=== PATIENT | female | born 1955 | race American Indian/Alaskan Native ===

== ENCOUNTER 2017-08-16 19:41 | Emergency (ER) | payer MEDICARE ==
[2017-08-16 20:19] LABS: Basophils % (Auto) 0.7 % (0.0-1.8); Eosinophils % (Auto) 0.4 % (0.0-4.3); Hematocrit 35.2 % (30.3-42.9); Hemoglobin 11.6 gm/dl (10.1-14.3); Mean Corpuscular HGB Conc 33 % (30-34); Mean Corpuscular Hemoglobin 31 pg (28-32); Mean Corpuscular Volume 94 fl (79-97); Platelet Count 175 K/mm3 (140-440); Red Blood Count 3.76 M/mm3 (3.65-5.03); Red Cell Distribution Width 16.3 % (13.2-15.2); White Blood Count 11.6 K/mm3 (4.5-11.0)
[2017-08-16 20:35] LABS: Anion Gap 18 mmol/L; BUN/Creatinine Ratio 15; Blood Urea Nitrogen 9 mg/dL (7-17); Calcium 8.9 mg/dL (8.4-10.2); Carbon Dioxide 26 mmol/L (22-30); Chloride 103.8 mmol/L (98-107); Glucose 102 mg/dL (65-100); Potassium 3.5 mmol/L (3.6-5.0); Sodium 144 mmol/L (137-145)
--- NOTE | 2017-08-17 08:00 | XRay Report ---
Chest 2 views. History: Cough and chest pain. Findings: The heart and pulmonary vessels are normal. The lungs are clear. There is no pleural fluid. A cardiac pacemaker is in satisfactory position. Impression: No acute findings.
[2017-08-17] MEDS ORDERED: CLEOCIN 600 MG/50 mL 600 MG/50 ML BAG IV ONE (09:01)
[2017-08-17] MEDS ORDERED: NACL 0.9% 500 ML 500 ML IV ONE (09:01)
[2017-08-17] MEDS ORDERED: SUBLIMAZE IV ONE ×2 (09:01→11:58)
[2017-08-17] MEDS ORDERED: TYLENOL PO ONE (09:02)
--- NOTE | 2017-08-17 09:02 | Emergency Department Report ---
ED General Adult HPI - General Chief complaint: Chest Pain Stated complaint: CHEST PAIN Time Seen by Provider: 08/17/17 08:51 Source: patient, RN notes reviewed, old records reviewed Mode of arrival: Ambulatory Limitations: No Limitations - History of Present Illness Initial comments: This is a 61-year-old female who was previously unknown to this provider. The patient presents to the ER with a complaint of left lower dental pain. The pain has been present for 1 day. It is sharp. It increases with palpation. It decreases with rest. Does not radiate anywhere. Patient denies severe headache, posterior neck pain, chest pain, shortness of breath, nausea, vomiting. Patient has a left sided cardiac ICD device, reports a negative nuclear stress test earlier on this year with her primary roads superintendent, Dr. Idris Phillips Patient reports no pulmonary embolus or DVT risk factors. Contrary to what is documented in the triage nurse note, patient endorses a "pulling" sensation over her left-sided ICD device. This happened hours ago, and has since resolved. There is no shortness of breath, vomiting or diaphoresis. -: Gradual Location: mouth Radiation: non-radiation Severity scale (0 -10): 10 Quality: aching Consistency: intermittent Improves with: rest Worsens with: eating, movement Associated Symptoms: denies: confusion, chest pain, cough, diaphoresis, fever/ chills, headaches, loss of appetite, malaise, nausea/vomiting, rash, shortness of breath, syncope, weakness - Related Data Home Medications Medication Instructions Recorded Confirmed Last Taken ALBUTEROL Inhaler [Proair] 2 puff IH QID PRN 08/17/17 08/17/17 Unknown Aspirin 81 mg PO QDAY 08/17/17 08/17/17 Unknown Carvedilol 12.5 mg PO BID 08/17/17 08/17/17 Unknown Citalopram [celeXA] 20 mg PO QDAY 08/17/17 08/17/17 Unknown Furosemide [Lasix] 20 mg PO QDAY 08/17/17 08/17/17 Unknown Gabapentin [Neurontin] 300 mg PO BID 08/17/17 08/17/17 Unknown Ipratropium [Atrovent] 0.5 mg IH Q4HR 08/17/17 08/17/17 Unknown Lisinopril [Zestril] 20 mg PO QDAY 08/17/17 08/17/17 Unknown Omeprazole 20 mg PO BID 08/17/17 08/17/17 Unknown SUMAtriptan SUCCINATE [SUMAtriptan 50 mg PO QDAY 08/17/17 08/17/17 Unknown Succinate] Simvastatin 20 mg PO QDAY 08/17/17 08/17/17 Unknown Spironolactone 25 mg PO QDAY 08/17/17 08/17/17 Unknown Umeclidinium Brm/Vilanterol Tr 1 each IH QDAY 08/17/17 08/17/17 Unknown [Anoro Ellipta 62.5-25 Mcg INH] tiZANidine [Zanaflex] 4 mg PO BID 08/17/17 08/17/17 Unknown Previous Rx's Medication Instructions Recorded Last Taken Type Acetaminophen/Codeine [Tylenol 1 tab PO Q6H PRN #15 tab 08/17/17 Unknown Rx /Codeine # 3 tab] Chlorhexidine Mouthwash [Peridex] 15 ml MM BID #1 bottle 08/17/17 Unknown Rx Clindamycin [Clindamycin CAP] 300 mg PO Q6H #28 capsule 08/17/17 Unknown Rx Allergies Allergy/AdvReac Type Severity Reaction Status Date / Time No Known Allergies Allergy Unverified 08/13/13 12:06 ED Review of Systems ROS: Stated complaint: CHEST PAIN Other details as noted in HPI Constitutional: denies: fever, malaise Eyes: denies: eye discharge ENT: dental pain. denies: ear pain Respiratory: denies: cough, shortness of breath, SOB with exertion, SOB at rest , wheezing Cardiovascular: denies: chest pain, syncope Gastrointestinal: denies: vomiting Genitourinary: as per HPI Musculoskeletal: as per HPI. 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, cyst on liver - Surgical History Hx Internal Defibrillator: Yes - Social History Smoking Status: Unknown if ever smoked Substance Use Type: None - Medications Home Medications: Home Medications Medication Instructions Recorded Confirmed Last Taken Type ALBUTEROL Inhaler [Proair] 2 puff IH QID PRN 08/17/17 08/17/17 Unknown History Acetaminophen/Codeine [Tylenol 1 tab PO Q6H PRN #15 tab 08/17/17 Unknown Rx /Codeine # 3 tab] Aspirin 81 mg PO QDAY 08/17/17 08/17/17 Unknown History Carvedilol 12.5 mg PO BID 08/17/17 08/17/17 Unknown History Chlorhexidine Mouthwash [Peridex] 15 ml MM BID #1 bottle 08/17/17 Unknown Rx Citalopram [celeXA] 20 mg PO QDAY 08/17/17 08/17/17 Unknown History Clindamycin [Clindamycin CAP] 300 mg PO Q6H #28 capsule 08/17/17 Unknown Rx Furosemide [Lasix] 20 mg PO QDAY 08/17/17 08/17/17 Unknown History Gabapentin [Neurontin] 300 mg PO BID 08/17/17 08/17/17 Unknown History Ipratropium [Atrovent] 0.5 mg IH Q4HR 08/17/17 08/17/17 Unknown History Lisinopril [Zestril] 20 mg PO QDAY 08/17/17 08/17/17 Unknown History Omeprazole 20 mg PO BID 08/17/17 08/17/17 Unknown History SUMAtriptan SUCCINATE [SUMAtriptan 50 mg PO QDAY 08/17/17 08/17/17 Unknown History Succinate] Simvastatin 20 mg PO QDAY 08/17/17 08/17/17 Unknown History Spironolactone 25 mg PO QDAY 08/17/17 08/17/17 Unknown History Umeclidinium Brm/Vilanterol Tr 1 each IH QDAY 08/17/17 08/17/17 Unknown History [Anoro Ellipta 62.5-25 Mcg INH] tiZANidine [Zanaflex] 4 mg PO BID 08/17/17 08/17/17 Unknown History ED Physical Exam - General Limitations: No Limitations General appearance: alert, in no apparent distress - Head Head exam: Present: atraumatic, normocephalic - Eye Eye exam: Present: normal appearance, EOMI - ENT ENT exam: Present: normal orophraynx, mucous membranes moist, normal external ear exam, other (patient has left swelling to the inferior mandible. The left lateral gumline is tender near tooth #30/31. Patient speaking in full sentences , there is no stridor, dysphonia, trismus, malocclusion) - Neck Neck exam: Present: normal inspection, full ROM. Absent: tenderness, meningismus - Respiratory Respiratory exam: Present: normal lung sounds bilaterally, chest wall tenderness. Absent: respiratory distress, wheezes, rales, rhonchi, stridor - Cardiovascular Cardiovascular Exam: Present: regular rate, normal rhythm, normal heart sounds. Absent: systolic murmur, diastolic murmur, rubs, gallop - GI/Abdominal GI/Abdominal exam: Present: soft, normal bowel sounds. Absent: distended, tenderness, guarding, rebound, rigid, pulsatile mass - Extremities Exam Extremities exam: Present: normal inspection, full ROM, normal capillary refill. Absent: pedal edema, joint swelling, calf tenderness - Back Exam Back exam: Present: normal inspection, full ROM. Absent: tenderness, CVA tenderness (R), paraspinal tenderness, vertebral tenderness - Neurological Exam Neurological exam: Present: alert, oriented X3, CN II-XII intact, normal gait, other (Extraocular movements intact. Tongue midline. No facial droop. Facial sensation intact to light touch in the V1, V2, V3 distribution bilaterally. 5 and 5 strength in 4 extremities.. Sensation is intact to light touch in 4 extremities.). Absent: motor sensory deficit - Psychiatric Psychiatric exam: Present: normal affect, normal mood - Skin Skin exam: Present: warm, dry, intact, normal color. Absent: rash ED Course Vital Signs 08/16/17 08/17/17 08/17/17 19:55 03:12 03:15 Temperature 99.3 F 98.6 F Pulse Rate 94 H 78 81 Respiratory 18 16 13 Rate Blood Pressure 109/73 108/60 Blood Pressure 140/82 [Left] O2 Sat by Pulse 97 99 96 Oximetry 08/17/17 08/17/17 08/17/17 03:30 03:45 05:15 Temperature Pulse Rate 72 83 92 H Respiratory 13 15 12 Rate Blood Pressure 116/48 109/47 114/69 Blood Pressure [Left] O2 Sat by Pulse 97 95 96 Oximetry 08/17/17 08/17/17 08/17/17 05:30 06:00 06:15 Temperature Pulse Rate 74 77 81 Respiratory 12 15 14 Rate Blood Pressure 114/69 121/63 115/62 Blood Pressure [Left] O2 Sat by Pulse 98 92 90 Oximetry 08/17/17 08/17/17 08/17/17 06:30 07:00 07:30 Temperature Pulse Rate 82 79 69 Respiratory 14 12 13 Rate Blood Pressure 104/69 122/66 122/71 Blood Pressure [Left] O2 Sat by Pulse 94 93 97 Oximetry 08/17/17 08/17/17 08/17/17 08:00 08:30 09:31 Temperature Pulse Rate 71 64 Respiratory 14 13 Rate Blood Pressure 126/67 129/64 130/71 Blood Pressure [Left] O2 Sat by Pulse 97 99 98 Oximetry 08/17/17 08/17/17 08/17/17 10:01 10:15 10:30 Temperature Pulse Rate 77 72 Respiratory 10 L 14 Rate Blood Pressure 130/93 130/93 119/69 Blood Pressure [Left] O2 Sat by Pulse 98 99 98 Oximetry 08/17/17 10:45 Temperature Pulse Rate 65 Respiratory 8 L Rate Blood Pressure 112/58 Blood Pressure [Left] O2 Sat by Pulse 100 Oximetry ED Medical Decision Making - Lab Data Result diagrams: 08/16/17 20:06 08/16/17 20:06 Vital Signs 08/16/17 08/17/17 08/17/17 19:55 03:12 03:15 Temperature 99.3 F 98.6 F Pulse Rate 94 H 78 81 Respiratory 18 16 13 Rate Blood Pressure 109/73 108/60 Blood Pressure 140/82 [Left] O2 Sat by Pulse 97 99 96 Oximetry 08/17/17 08/17/17 08/17/17 03:30 03:45 05:15 Temperature Pulse Rate 72 83 92 H Respiratory 13 15 12 Rate Blood Pressure 116/48 109/47 114/69 Blood Pressure [Left] O2 Sat by Pulse 97 95 96 Oximetry 08/17/17 08/17/17 08/17/17 05:30 06:00 06:15 Temperature Pulse Rate 74 77 81 Respiratory 12 15 14 Rate Blood Pressure 114/69 121/63 115/62 Blood Pressure [Left] O2 Sat by Pulse 98 92 90 Oximetry 08/17/17 08/17/17 08/17/17 06:30 07:00 07:30 Temperature Pulse Rate 82 79 69 Respiratory 14 12 13 Rate Blood Pressure 104/69 122/66 122/71 Blood Pressure [Left] O2 Sat by Pulse 94 93 97 Oximetry 08/17/17 08/17/17 08/17/17 08:00 08:30 09:31 Temperature Pulse Rate 71 64 Respiratory 14 13 Rate Blood Pressure 126/67 129/64 130/71 Blood Pressure [Left] O2 Sat by Pulse 97 99 98 Oximetry 08/17/17 08/17/17 08/17/17 10:01 10:15 10:30 Temperature Pulse Rate 77 72 Respiratory 10 L 14 Rate Blood Pressure 130/93 130/93 119/69 Blood Pressure [Left] O2 Sat by Pulse 98 99 98 Oximetry 08/17/17 10:45 Temperature Pulse Rate 65 Respiratory 8 L Rate Blood Pressure 112/58 Blood Pressure [Left] O2 Sat by Pulse 100 Oximetry Lab Results 08/16/17 08/16/17 08/16/17 Range/Units 20:06 20:06 22:52 WBC 11.6 H (4.5-11.0) K/mm3 RBC 3.76 (3.65-5.03) M/mm3 Hgb 11.6 (10.1-14.3) gm/dl Hct 35.2 (30.3-42.9) % MCV 94 (79-97) fl MCH 31 (28-32) pg MCHC 33 (30-34) % RDW 16.3 H (13.2-15.2) % Plt Count 175 (140-440) K/mm3 Lymph % (Auto) 21.9 (13.4-35.0) % Reeves % (Auto) 9.1 H (0.0-7.3) % Eos % (Auto) 0.4 (0.0-4.3) % Baso % (Auto) 0.7 (0.0-1.8) % Lymph # 2.5 (1.2-5.4) K/mm3 Reeves # 1.1 H (0.0-0.8) K/mm3 Eos # 0.1 (0.0-0.4) K/mm3 Baso # 0.1 (0.0-0.1) K/mm3 Seg Neutrophils % 67.9 (40.0-70.0) % Seg Neutrophils # 7.9 H (1.8-7.7) K/mm3 Sodium 144 (137-145) mmol/L Potassium 3.5 L (3.6-5.0) mmol/L Chloride 103.8 (98-107) mmol/L Carbon Dioxide 26 (22-30) mmol/L Anion Gap 18 mmol/L BUN 9 (7-17) mg/dL Creatinine 0.6 L (0.7-1.2) mg/dL Estimated GFR > 60 ml/min BUN/Creatinine Ratio 15 % Glucose 102 H (65-100) mg/dL Calcium 8.9 (8.4-10.2) mg/dL Troponin T < 0.010 < 0.010 (0.00-0.029) ng/mL 08/17/17 Range/Units 01:40 WBC (4.5-11.0) K/mm3 RBC (3.65-5.03) M/mm3 Hgb (10.1-14.3) gm/dl Hct (30.3-42.9) % MCV (79-97) fl MCH (28-32) pg MCHC (30-34) % RDW (13.2-15.2) % Plt Count (140-440) K/mm3 Lymph % (Auto) (13.4-35.0) % Reeves % (Auto) (0.0-7.3) % Eos % (Auto) (0.0-4.3) % Baso % (Auto) (0.0-1.8) % Lymph # (1.2-5.4) K/mm3 Reeves # (0.0-0.8) K/mm3 Eos # (0.0-0.4) K/mm3 Baso # (0.0-0.1) K/mm3 Seg Neutrophils % (40.0-70.0) % Seg Neutrophils # (1.8-7.7) K/mm3 Sodium (137-145) mmol/L Potassium (3.6-5.0) mmol/L Chloride (98-107) mmol/L Carbon Dioxide (22-30) mmol/L Anion Gap mmol/L BUN (7-17) mg/dL Creatinine (0.7-1.2) mg/dL Estimated GFR ml/min BUN/Creatinine Ratio % Glucose (65-100) mg/dL Calcium (8.4-10.2) mg/dL Troponin T < 0.010 (0.00-0.029) ng/mL - EKG Data 08/17/17 13:52 Sinus, 86 bpm, normal axis, prolonged QTC, left ventricular voltage, abnormal EKG, not morphologically consistent with ST elevation myocardial infarction. Repeat EKG is unchanged. - Radiology Data Radiology results: report reviewed, image reviewed X-ray of the chest is negative for acute disease, left-sided cardiac device is noted. CT scan of the neck demonstrates left-sided odontogenic abscess with no soft tissue abscess. - Medical Decision Making Differential diagnosis, including but not limited to: Dental abscess, deep space neck abscess, deferred with a pocket discomfort Assessment and plan: 61-year-old female with clinical dental abscess, patient protecting her airway, abscess is confirmed on CT scan. Patient did not endorse chest pain, but rather endorsed a pulling sensation over her left-sided defibrillator. She is afebrile with reassuring vital signs, clinically stable, has been observed in the ER for hours without clinical decompensation. Patient has no pulmonary embolus or DVT risk factors, she is low risk by well's criteria, I find her to be low risk by heart score. Case was discussed with consulting oral surgeon at [facility], Dr. Malia Betancourt We both agree that based on the current set of physical exam findings and CT scan findings the patient does not require emergency transport for transfer today, and he indicates that the patient can follow up tomorrow at the oral surgery clinic at [facility]. Patient was medicated with IV fluids, IV fentanyl and clindamycin. Patient will be discharged with pain medication, nausea medication and chlorhexidine. Family is reliable to take patients to follow-up tomorrow with the oral surgeons at another hospital, and patient will be discharged at this time. Critical care attestation.: If time is entered above; I have spent that time in minutes in the direct care of this critically ill patient, excluding procedure time. ED Disposition Clinical Impression: Dental abscess, Chest discomfort Disposition: DC-01 TO HOME OR SELFCARE Is pt being admited?: No Does the pt Need Aspirin: No Condition: Stable Instructions: Dental Abscess (ED) Additional Instructions: Take the pain medication, nausea medication, antibiotic tablets, antibiotic mouthwash as directed. Contact the [facility] clinic at [phone]; please inform the staff that I have personally spoken to Dr. Ace Betancourt, and he is authorized the patient to present tomorrow in clinic as an overbook. Patient will be seen by a doctor Farish. Please continue current outpatient medications, and follow up with her outpatient primary care doctor or roads superintendent within the next month. ER readily with new pain, worsened pain, migration of pain, fevers, chills, lethargy, irritability, projectile vomiting, confusion, change in mental status , inability to tolerate liquid feeds, inability to speak, inability to breathe. Referrals: ROSY JACK MD [Primary Care Provider] - 3-5 Days ALYSSIA-DG CEBALLOS MD [Staff Physician] - 3-5 Days
--- NOTE | 2017-08-17 12:22 | Cat Scan Report ---
CT NECK WITH CONTRAST: 08/16/17 19:41:00 CLINICAL: Pain and swelling. TECHNIQUE: Volumetric acquisition and 1.25 mm scan reconstructionsafter the uneventful intravenous injection of 100-cc Omnipaque 350. Consent was obtained prior to the administration of the IV contrast. FINDINGS: Normal mucosal structures of the nasopharynx, oropharynx, hypopharynx and larynx. Left mandibular soft tissue edema but no abscess. Mildly enlarged left submandibular and left level II jugular chain lymph nodes. The largest lymph node is a jugular lymph node that measures 1.7 cm. Normal salivary glands. The parapharyngeal spaces are normal. The TMJ is normal. There is a lucency associated with the most posterior left lower tooth and this is probably a dental abscess. IMPRESSION: Likely a left lower dental abscess but no soft tissue abscess.
[2017-08-17 14:45] VITALS: BP 116/61
== END 2017-08-17 14:44 | disposition home or self-care (01) ==
LOC: ED 19:41
DX: K04.7 Periapical abscess without sinus (principal); R07.89 Other chest pain; I10 Essential (primary) hypertension; J45.909 Unspecified asthma, uncomplicated; J44.9 Chronic obstructive pulmonary disease, unspecified; I50.9 Heart failure, unspecified; Z79.82 Long term (current) use of aspirin
CPT/HCPCS: 36415; 70491; 71020; 80048; 84484; 85025; 93005; 93010; 96365; 96366; 96375; 96376; 99285; J3010; J7040; Q9967